=== PATIENT | female | born 1975 | race Caucasian/White ===

== ENCOUNTER 2017-10-30 11:47 | Emergency (ER) | END 2017-10-30 15:20 | disposition home or self-care (01) ==

== ENCOUNTER 2017-11-20 11:13 | Emergency (ER) | END 2017-11-20 15:45 | disposition home or self-care (01) ==

== ENCOUNTER 2017-12-03 18:12 | Emergency (ER) | END 2017-12-03 18:55 | disposition home or self-care (01) ==

== ENCOUNTER 2018-01-03 12:04 | Day surgery (SDC) | END 2018-01-03 15:31 | disposition home or self-care (01) ==